=== PATIENT | male | born 2000 | race Caucasian/White ===

== ENCOUNTER 2023-06-05 15:12 | Emergency (ER) | payer BC, MEDICAID ==
[2023-06-05 15:27] VITALS: TEMP 98
--- NOTE | 2023-06-05 15:35 | ERPHSYRPT ---
- History of Present Illness Time Seen by Provider: 06/05/23 15:29 Source: patient, family Exam Limitations: no limitations Patient Subjective Stated Complaint: Vomiting Triage Nursing Assessment: Patient ambulated back to ED and transferred self to bed. Patient A+O x3. Painivia's skin pale, warm and dry. Patient complains of vomiting since Tuesday. Physician History: pt presented with vomiting x 3 days now which is unusal although he can have a single episode in the past after taking ozempic. He also has hx diverticulitis and although not tender, it is concerning for recurrence or obstruction or even intestinal torsion. discussed risks/benefits with pt and mom and they wish to proceed with CT abd, amylase, lipase, cbc, cmp, lactate, ua, IVF and ondansitron, pepcid, prilosec, these are ordered. results discussed with family and pt. Timing/Duration: day(s) Severity: moderate Associated Symptoms: nausea, vomiting, loss of appetite, malaise Allergies/Adverse Reactions: No Known Drug Allergies Allergy (Verified 06/05/23 15:22) Home Medications: Amlodipine Besilate PO DAILY 10/13/11 [History] Hydrochlorothiazide PO DAILY 10/13/11 [History] Lisinopril 5 mg PO DAILY 10/13/11 [History] Prevacid 30 mg PO BID 10/13/11 [History] Hx Influenza Vaccination/Date Given: No Hx Pneumococcal Vaccination/Date Given: No Immunizations Up to Date: Yes Travel Risk - International Travel Have you traveled outside of the country in past 3 weeks: No - Coronavirus Screening Are you exhibiting any of the following symptoms?: No Close contact with a COVID-19 positive Pt in past 14-21 Days: No - Vaccine Status Have you recieved a Covid-19 vaccination: Yes Cto: Unknown - Vaccination Dates Dates if Unknown: na - Review of Systems Constitutional: Malaise, No Fever, No Chills Eyes: No Symptoms Ears, Nose, & Throat: No Symptoms Respiratory: No Cough, No Dyspnea Cardiac: No Chest Pain, No Edema, No Syncope Abdominal/Gastrointestinal: Nausea, Vomiting, No Abdominal Pain, No Diarrhea Genitourinary Symptoms: No Dysuria Musculoskeletal: No Back Pain, No Neck Pain Skin: No Rash Neurological: No Dizziness, No Focal Weakness, No Sensory Changes Psychological: No Symptoms Endocrine: No Symptoms Hematologic/Lymphatic: No Symptoms Immunological/Allergic: No Symptoms All Other Systems: Reviewed and Negative - Past Medical History Pertinent Past Medical History: Yes Cardiac History: Hypertension Other Medical History: RADHA SYNDROME - Past Surgical History Past Surgical History: No - Social History Smoking Status: Never smoker Exposure to second hand smoke: No Drug Use: none Patient Lives Alone: No - Nursing Vital Signs Nursing Vital Signs: Initial Vital Signs Temperature 98.0 F 06/05/23 15:23 Pulse Rate 136 H 06/05/23 15:23 Respiratory Rate 18 06/05/23 15:23 Blood Pressure 144/109 06/05/23 15:23 O2 Sat by Pulse Oximetry 96 06/05/23 15:23 Pain Scale Pain Intensity 4 - Physical Exam General Appearance: no apparent distress, alert Eye Exam: PERRL/EOMI, eyes nml inspection Ears, Nose, Throat Exam: normal ENT inspection, TMs normal, pharynx normal, moist mucous membranes Neck Exam: normal inspection, non-tender, supple, full range of motion Respiratory Exam: normal breath sounds, lungs clear, No respiratory distress Cardiovascular Exam: regular rate/rhythm, normal heart sounds, normal peripheral pulses Gastrointestinal/Abdomen Exam: soft, distention, No tenderness, No mass Rectal Exam: deferred Back Exam: normal inspection, normal range of motion, No CVA tenderness, No vertebral tenderness Extremity Exam: normal inspection, normal range of motion, pelvis stable Neurologic Exam: alert, oriented x 3, cooperative, normal mood/affect, nml cerebellar function, nml station & gait, sensation nml, No motor deficits Skin Exam: normal color, warm, dry, No rash Lymphatic Exam: No adenopathy SpO2 Interpretation: normal SpO2: 96 O2 Delivery: Room Air - Course Nursing assessment & vital signs reviewed: Yes Ordered Tests: Active Orders 24 hr Category Date Time Status IV Insertion STAT Care 06/05/23 15:40 Active ABDOMEN AND PELVIS W/0 CONTRAS [CT] Stat Exams 06/05/23 15:41 Completed AMYLASE Stat Lab 06/05/23 15:45 Completed CBC W DIFF Stat Lab 06/05/23 15:45 Completed CMP Stat Lab 06/05/23 15:45 Completed LIPASE Stat Lab 06/05/23 15:45 Completed Lactic Acid Stat Lab 06/05/23 15:40 Completed Lactic Acid Stat Lab 06/05/23 18:09 Received UA W/RFX UR CULTURE Stat Lab 06/05/23 15:44 Completed VBG [VENOUS BLOOD GAS] Stat Lab 06/05/23 16:05 Completed Medication Summary Discontinued Medications Generic Name Dose Route Start Last Admin Trade Name Cody PRN Reason Stop Dose Admin Famotidine 20 mg 06/05/23 15:40 06/05/23 15:51 Famotidine 20 Mg/1 Vial IV 06/05/23 15:41 20 mg STAT ONE Administration Famotidine Confirm 06/05/23 15:45 Famotidine 20 Mg/1 Vial Administered 06/05/23 15:46 Dose 20 mg IV .STK-MED ONE Sodium Chloride 1,000 mls @ 999 mls/hr 06/05/23 15:40 06/05/23 16:56 Sodium Chloride 0.9% 1000 Ml IV 06/05/23 16:40 Infused .Q1H1M STA Infusion Sodium Chloride Confirm 06/05/23 15:45 Sodium Chloride 0.9% 1000 Ml Administered 06/05/23 15:46 Dose 1,000 mls @ ud .ROUTE .STK-MED ONE Ondansetron HCl 4 mg 06/05/23 15:40 06/05/23 15:47 Ondansetron Hcl 4 Mg/2 Ml Vial IV 06/05/23 15:41 4 mg STAT ONE Administration Ondansetron HCl Confirm 06/05/23 15:45 Ondansetron Hcl 4 Mg/2 Ml Vial Administered 06/05/23 15:46 Dose 4 mg .ROUTE .STK-MED ONE Ondansetron HCl 4 mg 06/05/23 18:10 06/05/23 18:15 Ondansetron Hcl 4 Mg/2 Ml Vial IV 06/05/23 18:11 4 mg STAT ONE Administration Ondansetron HCl Confirm 06/05/23 18:14 Ondansetron Hcl 4 Mg/2 Ml Vial Administered 06/05/23 18:15 Dose 4 mg .ROUTE .STK-MED ONE Pantoprazole Sodium 40 mg 06/05/23 15:40 06/05/23 15:52 Pantoprazole 40 Mg Vial IV 06/05/23 15:41 40 mg STAT ONE Administration Pantoprazole Sodium Confirm 06/05/23 15:45 Pantoprazole 40 Mg Vial Administered 06/05/23 15:46 Dose 40 mg IV .STK-MED ONE Lab/Rad Data: Laboratory Result Diagrams 06/05/23 15:45 06/05/23 15:45 Laboratory Results 06/05/23 06/05/23 06/05/23 Range/Units 16:05 16:00 15:45 WBC (4.0-10.5) x10^3/uL RBC (4.1-5.6) x10^6/uL Hgb (12.5-18.0) g/dL Hct (42-50) % MCV (78-100) fL MCH (26-32) pg MCHC (32-36) g/dL RDW (11.5-14.0) % Plt Count (150-450) x10^3/uL MPV (7.5-11.0) fL Gran % (36.0-66.0) % Immature Gran % (Auto) (0.00-0.4) % Nucleat RBC Rel Count (0.00-0.1) % Eos # (Auto) (0-0.5) x10^3/uL Immature Gran # (Auto) (0.00-0.03) x10^3u/L Absolute Lymphs (auto) (1.0-4.6) x10^3/uL Absolute Monos (auto) (0.0-1.3) x10^3/uL Absolute Nucleated RBC (0.00-0.01) x10^3u/L Lymphocytes % (24.0-44.0) % Monocytes % (0.0-12.0) % Eosinophils % (0.00-5.0) % Basophils % (0.0-0.4) % Absolute Granulocytes (1.4-6.9) x10^3/uL Basophils # (0-0.4) x10^3/uL pO2/FiO2 Ratio 21 % VBG pH 7.27 L (7.32-7.42) VBG pCO2 at Pat Temp 21 L* (42-55) mm/Hg VBG pO2 at Pat Temp 125 H (25-40) mm/Hg VBG HCO3 9.6 L* (22-28) meq/L VBG O2 Sat ([place]) 96.5 (95-100) VBG Base Excess -14.4 L (-2.0-2.0) VBG Hemoglobin 19.3 VBG Carboxyhemoglobin 1.1 (0.0-6.9) % T HGB POC Potassium 4.8 (3.5-5.1) Sodium 136 L (137-145) mmol/L Potassium 3.8 (3.5-5.1) mmol/L Chloride 93 L (98-107) mmol/L Carbon Dioxide 7 L* (22-30) mmol/L Anion Gap 39.3 H (5-15) MEQ/L BUN 28 H (9-20) mg/dL Creatinine 1.24 (0.66-1.25) mg/dL Estimated GFR 83.8 ML/MIN Glucose 360 H (74-106) mg/dL Lactic Acid (0.4-2.0) Calcium 10.2 (8.4-10.2) mg/dL Total Bilirubin 1.10 (0.2-1.3) mg/dL AST 22 (17-59) U/L ALT 43 (0-50) U/L Alkaline Phosphatase 105 (38-126) U/L Serum Total Protein 9.2 H (6.3-8.2) g/dL Albumin 5.9 H (3.5-5.0) g/dL Amylase 69 (30-110) U/L Lipase 150 (23-300) U/L Urine Color (Yellow) Urine Appearance (Clear) Urine pH (4.6-8.0) Ur Specific [place] (1.005-1.030) Urine Protein (Negative) Urine Glucose (UA) (Negative) mg/dL Urine Ketones (Negative) Urine Blood (Negative) Urine Nitrite (Negative) Urine Bilirubin (Negative) Urine Urobilinogen (0.2) mg/dL Ur Leukocyte Esterase (Negative) U Hyaline Cast (Auto) (0-2) /LPF Urine Microscopic RBC (0-5) /HPF Urine Microscopic WBC (0-5) /HPF Ur Epithelial Cells (None Seen) /HPF Urine Bacteria (None Seen) /HPF Urine Culture Reflexed (NO) Influenza Type A Ag NEGATIVE (NEGATIVE) Influenza Type B Ag NEGATIVE (NEGATIVE) RSV (PCR) NEGATIVE (NEGATIVE) SARS-CoV-2 (PCR) NEGATIVE (NEGATIVE) 06/05/23 06/05/23 06/05/23 Range/Units 15:45 15:44 15:40 WBC 19.3 H (4.0-10.5) x10^3/uL RBC 6.29 H (4.1-5.6) x10^6/uL Hgb 18.6 H (12.5-18.0) g/dL Hct 54.2 H (42-50) % MCV 86.2 (78-100) fL MCH 29.6 (26-32) pg MCHC 34.3 (32-36) g/dL RDW 13.1 (11.5-14.0) % Plt Count 415 (150-450) x10^3/uL MPV 11.4 H (7.5-11.0) fL Gran % 85.1 H (36.0-66.0) % Immature Gran % (Auto) 0.5 H (0.00-0.4) % Nucleat RBC Rel Count 0.0 (0.00-0.1) % Eos # (Auto) 0.03 (0-0.5) x10^3/uL Immature Gran # (Auto) 0.10 H (0.00-0.03) x10^3u/L Absolute Lymphs (auto) 1.63 (1.0-4.6) x10^3/uL Absolute Monos (auto) 1.08 (0.0-1.3) x10^3/uL Absolute Nucleated RBC 0.00 (0.00-0.01) x10^3u/L Lymphocytes % 8.4 L (24.0-44.0) % Monocytes % 5.6 (0.0-12.0) % Eosinophils % 0.2 (0.00-5.0) % Basophils % 0.2 (0.0-0.4) % Absolute Granulocytes 16.46 H (1.4-6.9) x10^3/uL Basophils # 0.04 (0-0.4) x10^3/uL pO2/FiO2 Ratio % VBG pH (7.32-7.42) VBG pCO2 at Pat Temp (42-55) mm/Hg VBG pO2 at Pat Temp (25-40) mm/Hg VBG HCO3 (22-28) meq/L VBG O2 Sat ([place]) (95-100) VBG Base Excess (-2.0-2.0) VBG Hemoglobin VBG Carboxyhemoglobin (0.0-6.9) % T HGB POC Potassium (3.5-5.1) Sodium (137-145) mmol/L Potassium (3.5-5.1) mmol/L Chloride (98-107) mmol/L Carbon Dioxide (22-30) mmol/L Anion Gap (5-15) MEQ/L BUN (9-20) mg/dL Creatinine (0.66-1.25) mg/dL Estimated GFR ML/MIN Glucose (74-106) mg/dL Lactic Acid 3.9 H (0.4-2.0) Calcium (8.4-10.2) mg/dL Total Bilirubin (0.2-1.3) mg/dL AST (17-59) U/L ALT (0-50) U/L Alkaline Phosphatase (38-126) U/L Serum Total Protein (6.3-8.2) g/dL Albumin (3.5-5.0) g/dL Amylase (30-110) U/L Lipase (23-300) U/L Urine Color Yellow (Yellow) Urine Appearance Clear (Clear) Urine pH 5.0 (4.6-8.0) Ur Specific [place] 1.025 (1.005-1.030) Urine Protein 30 (Negative) Urine Glucose (UA) >=1000 A (Negative) mg/dL Urine Ketones >=160 A (Negative) Urine Blood Negative (Negative) Urine Nitrite Negative (Negative) Urine Bilirubin Negative (Negative) Urine Urobilinogen 0.2 (0.2) mg/dL Ur Leukocyte Esterase Negative (Negative) U Hyaline Cast (Auto) NONE SEEN (0-2) /LPF Urine Microscopic RBC 0-2 (0-5) /HPF Urine Microscopic WBC 0-2 (0-5) /HPF Ur Epithelial Cells None Seen (None Seen) /HPF Urine Bacteria None Seen (None Seen) /HPF Urine Culture Reflexed NO (NO) Influenza Type A Ag (NEGATIVE) Influenza Type B Ag (NEGATIVE) RSV (PCR) (NEGATIVE) SARS-CoV-2 (PCR) (NEGATIVE) - Progress Progress: improved, re-examined Progress Note: 06/05/23 17:30 discussed with pt and mom and pt has DKA and we feel needs to be at higher level facility - requesting consult to [facility], mely LEE if not able to take him there. 06/05/23 18:50 Consulted/ discussed with Dr. Braga at [facility] and they accepted but have no beds. [facility] could not accept at [facility]. Consulted Dr. Rosas in ER at [facility] - Called [facility] and the ER Dr. Rosas accepted. Discussed with Dr.: Other (Dr. Rosas) Will see patient in: ED Counseled pt/family regarding: lab results, diagnosis, need for follow-up, rad results Medical Desision Making - Independent Historian Additional History obtained from: Mother - Discussion of managment Reviewed:: Test results, Need for additional workup Agreed on:: Treatment plan, need for follow-up - Diagnostic Testing Diagnostic test were ordered, analyzed, and reviewed by me: Yes Radiological Interpretation: Reviewed by me - Risk of complications The pt has a mod risk of morbidity or mortality based on: Need for prescription drug management The pt has a high risk of morbidity or mortality based on: Decision regarding hospitilization or escalation of hosp level of care - Departure Departure Disposition: Transfer Clinical Impression: DKA (diabetic ketoacidosis), Ozempic reaction Condition: Good Critical Care Time: No Referrals: EVELYN RACHEL MD [Primary Care Provider] - Follow up/PCP as directed
[2023-06-05] MEDS ORDERED: Sodium Chloride 0.9% 1000 ML 1,000 ML IV STA (15:40)
[2023-06-05] MEDS ORDERED: PROTONIX 40 MG IV IV ONE ×2 (15:40→15:45)
[2023-06-05] MEDS ORDERED: Zofran 4 MG/2 ML VIAL IV ONE ×2 (15:40→18:10)
[2023-06-05] MEDS ORDERED: Pepcid 20 MG VIAL IV ONE ×2 (15:40→15:45)
[2023-06-05] MEDS ORDERED: Zofran 4 MG/2 ML VIAL ONE ×2 (15:45→18:14)
[2023-06-05] MEDS ORDERED: Sodium Chloride 0.9% 1000 ML 1,000 ML ONE ×2 (15:45→18:50)
[2023-06-05 16:03] LABS: Absolute Neutrophil Ct (ANC) 16.46 x10^3/uL (1.4-6.9); BASOPHIL % 0.2 % (0.0-0.4); Basophil (Absolute #) 0.04 x10^3/uL (0-0.4); Eosinophil % 0.2 % (0.00-5.0); Eosinophil (Absolute #) 0.03 x10^3/uL (0-0.5); Hematocrit 54.2 % (42-50); Hemoglobin 18.6 g/dL (12.5-18.0); IMMATURE GRAN % 0.5 % (0.00-0.4); Lymphocyte (Absolute #) 1.63 x10^3/uL (1.0-4.6); Lymphocytes % 8.4 % (24.0-44.0); Mean Cell Volume 86.2 fL (78-100); Mean Corpuscular Hemoglobin 29.6 pg (26-32); Mean Corpuscular Hgb Concent. 34.3 g/dL (32-36); Mean Platelet Volume 11.4 fL (7.5-11.0); Monocyte (Absolute #) 1.08 x10^3/uL (0.0-1.3); Monocytes % 5.6 % (0.0-12.0); Neutrophil % 85.1 % (36.0-66.0); Platelet Count 415 x10^3/uL (150-450); Red Blood Count 6.29 x10^6/uL (4.1-5.6); Red Cell Distribution Width 13.1 % (11.5-14.0); White Blood Count 19.3 x10^3/uL (4.0-10.5)
[2023-06-05 16:07] LABS: VBG HCO3- 9.6 meq/L (22-28); VBG pH 7.27 (7.32-7.42)
[2023-06-05 16:08] LABS: VBG BASE EXCESS -14.4 (-2.0-2.0); VBG CARBOXYHEMOGLOBIN 1.1 % T HGB (0.0-6.9); VBG HEMOGLOBIN 19.3; VBG O2 SATURATION 96.5 (95-100); VBG POTASSIUM 4.8 (3.5-5.1)
[2023-06-05 16:11] LABS: Appearance Clear (Clear); Bacteria None Seen /HPF (None Seen); Bilirubin Negative (Negative); Blood Negative (Negative); Epithelial Cells None Seen /HPF (None Seen); Glucose, Urine >=1000 mg/dL (Negative); Hyaline Casts NONE SEEN /LPF (0-2); Ketones >=160 (Negative); Leukocyte Esterase Negative (Negative); Nitrite Negative (Negative); Protein,Urine Dip 30 (Negative); RBC 0-2 /HPF (0-5); Specific Gravity 1.025 (1.005-1.030); Urobilinogen 0.2 mg/dL (0.2); WBC 0-2 /HPF (0-5)
[2023-06-05 16:12] LABS: ADD URINE CULTURE? NO (NO)
[2023-06-05 16:14] LABS: ALBUMIN 5.9 g/dL (3.5-5.0); ANION GAP 39.3 MEQ/L (5-15); BILIRUBIN,TOTAL 1.1 mg/dL (0.2-1.3); Calcium 10.2 mg/dL (8.4-10.2); Creatinine 1 1.24 mg/dL (0.66-1.25); EST GLOMERULAR FILTRATION RATE 83.8 ML/MIN; Potassium 3.8 mmol/L (3.5-5.1); Total Protein 9.2 g/dL (6.3-8.2)
--- NOTE | 2023-06-05 16:40 | XRAY ---
CLINICAL HISTORY:intractable vomiting COMPARISON:None. TECHNIQUE:CT scan of the abdomen and pelvis was performed without IV contrast. Coronal and sagittal reconstructive images were also obtained. 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 Abdomen: The liver is normal in size measuring 13.2 cm craniocaudally. There is mild diffuse parenchymal hypoattenuation. The portal vein, intrahepatic biliary radicals and the bile ducts are normal. The spleen, pancreas, adrenal glands are unremarkable. The kidneys are normal in size and shape. No cysts, mass, calculi or hydronephrosis. The gallbladder is distended and shows no definite stones. There is no evidence of wall thickening/ pericholecystic collection. Multiple diverticula are seen in the descending and sigmoid colon. The ascending colon, the transverse colon, the rest of the descending colon, visualized small bowel loops are unremarkable. The appendix is not clearly visualized. There is no evidence of significant enlargement of the mesenteric or retroperitoneal lymph nodes. There is mild to moderately sized hiatal hernia. Pelvis: The urinary bladder is unremarkable. The prostate is normal. The pelvic vasculature is unremarkable. No evidence of pelvic lymphadenopathy. IMPRESSION: 1. Hepatic steatosis. 2. Colonic diverticulosis mainly involving descending colon with no signs of diverticulitis. 3. Mild to moderately sized hiatal hernia. 4. 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 Electronically Signed by: Redd Medellin MD. (06/05/2023 16:36:11 EST)
[2023-06-05 17:43] LABS: INFLUENZA A NEGATIVE (NEGATIVE); INFLUENZA B NEGATIVE (NEGATIVE); RESPIRATORY SYNCTIAL VIRUS NEGATIVE (NEGATIVE); SARS-CoV-2 Xpert Express NEGATIVE (NEGATIVE)
[2023-06-05 18:37] VITALS: BP 153/100; PULSE 136; RESP 11
[2023-06-05 18:53] VITALS: O2SAT 96
== END 2023-06-05 19:45 | disposition short-term general hospital (02) ==
LOC: ED 15:12
DX: E11.10 Type 2 diabetes mellitus with ketoacidosis without coma (principal); R11.10 Vomiting, unspecified; T50.995A Adverse effect of other drugs, medicaments and biological substances, initial encounter; I10 Essential (primary) hypertension; Z79.85 Long-term (current) use of injectable non-insulin antidiabetic drugs; Z79.899 Other long term (current) drug therapy
CPT/HCPCS: 0241U; 36000; 36415; 74176; 80053; 81001; 82150; 82805; 83605; 83690; 85025; 96360; 96374; 96375; 99285; J2405